=== PATIENT | female | born 1980 | race Caucasian/White ===

== ENCOUNTER 2017-12-16 00:20 | Emergency (ER) | payer BC, OTHER ==
[~2017-12-16] VITALS: Ht 167.6 cm; Wt 135.6 kg
[~2017-12-16 00:20] MED LIST: CLARITIN PO; IBUPROFEN 600600 M1 PO; INTEGRA F PO; LANOLIN56 GM; PERCOCET 5-3251 EACH PO; PRENATAL PO; TYLENOL PO
[2017-12-16] MEDS ORDERED: LISINOPRIL2.5 MG PO (01:44)
[2017-12-16] MEDS ORDERED: METFORMIN HCL500 MG PO (01:44)
[2017-12-16] MEDS ORDERED: NORCO 7.5-3251 EACH PO (01:57)
[2017-12-16] MEDS ORDERED: IBUPROFEN 600600 M1 PO (01:57)
[2017-12-16] MEDS ORDERED: SENNA-DOCUSATE1 EACH PO (01:57)
[2017-12-16 02:36] VITALS: BP 165/108
== END 2017-12-16 02:37 | disposition home or self-care (01) ==
LOC: ER 00:20
DX: T25.222A Burn of second degree of left foot, initial encounter (principal); T31.0 Burns involving less than 10% of body surface; T25.121A Burn of first degree of right foot, initial encounter; X10.2XXA Contact with fats and cooking oils, initial encounter; Y93.89 Activity, other specified; Y92.89 Other specified places as the place of occurrence of the external cause; Y99.8 Other external cause status